=== PATIENT | male | born 1960 | race Caucasian/White ===

== ENCOUNTER 2021-04-19 15:00 | Observation (INO) ==
[2021-04-19 15:36] LABS: Basophils # (auto) 0.01 K/uL (0-0.2); Basophils % (auto) 0.2 %; Eosinophils # (auto) 0.05 K/uL (0-0.5); Eosinophils % (auto) 0.9 %; Hematocrit (blood only) 43.1 % (42-52); Hemoglobin 14.6 g/dL (14.0-18.0); Immature Granulocytes # (auto) 0.01 K/uL (0.00-0.02); Immature Granulocytes % (auto) 0.2 %; Lymphocytes # (auto) 1.67 K/uL (1.2-3.4); Mean Corpuscular Hemoglobin 31.4 pg (25-34); Mean Corpuscular Hgb Conc 33.9 g/dL (32-36); Mean Corpuscular Volume 92.7 fL (80-100); Mean Platelet Volume 10.4 fL (7.4-10.4); Monocytes # (auto) 0.45 K/uL (0.11-0.59); Monocytes % (auto) 7.8 %; Neutrophils # (auto) 3.56 K/uL (1.4-6.5); Neutrophils % (auto) 61.9 %; Platelet Count 121 K/uL (130-400); RDW Coefficient of Variation 14.3 % (11.5-14.5); RDW Standard Deviation 48.3 fL (36.4-46.3); Red Blood Count 4.65 M/uL (4.7-6.1); White Blood Count 5.75 K/uL (4.8-10.8)
[2021-04-19 15:48] LABS: Albumin Level 4.1 gm/dl (3.4-5.0); BUN Creatinine Ratio 19.3 (10-20); Calcium 9.8 mg/dl (8.5-10.1); Creatinine Clr Calc Pharmacy 119.3 ml/min; Est GFR (Non-African American) 94.9 ml/min; Potassium 3.9 mmol/L (3.5-5.1)
[2021-04-19 15:51] LABS: Albumin Globulin Ratio 1.2 (0.9-2); Bilirubin,Total 0.5 mg/dl (0.2-1); Globulin 3.4 gm/dl (2.5-4.0); Total Protein 7.5 gm/dl (6.4-8.2)
--- NOTE | 2021-04-19 16:47 | Emergency Department Note ---
Impression & Plan Incarcerated umbilical hernia, Abdominal pain ED Provider Note NAME: BASIL SALEEM AGE: 60 SEX: M : 1960 ARRIVES VIA: Walk-In INFORMANT: Patient ED PROVIDER(S): Kendell Brooks DO CHIEF COMPLAINT: abdominal pain HPI: Patient is a 60-year-old male who presents the ER for periumbilical abdominal pain. This started 2 days ago. He was diagnosed with Covid 3 weeks ago and his symptoms have nearly resolved. He notes he does have some normal bowel movements but he was recently taking a fair amount of antibiotics and believes this is secondary to that. Last bowel movement was within the past 24 hours. Denies any dysuria urgency or frequency. No chest pain or shortness of breath. He noticed pain around his umbilicus is worse with sitting or straining. It improves with standing up. Pain is currently 5 out of 10. ROS: See above HPI for pertinent positives & negatives. A total of 10 systems reviewed and were otherwise negative. PAST MEDICAL HISTORY:See Below PAST SURGICAL HISTORY:See Below FAMILY HISTORY:See Below SOCIAL HISTORY:See Below HOME MEDICATIONS:See Below ALLERGIES:See Below VITALS:See Below PHYSICAL EXAMINATION: GENERAL: Sitting up in bed, alert, well appearing, well nourished, no distress, non-toxic EYE EXAM: normal conjunctiva. PERRL and EOM's grossly intact. OROPHARYNX: no exudate, no erythema, lips, buccal mucosa, and tongue normal and mucous membranes are moist NECK: supple, no nuchal rigidity, no adenopathy, non-tender LUNGS: Clear to auscultation. Normal chest wall mechanics HEART: no murmurs, S1 normal and S2 normal ABDOMEN: abdomen soft, mild periumbilical tenderness, normo-active bowel sounds, no masses, no rebound or guarding. UPPER EXTREMITIES: upper extremities are grossly normal. LOWER EXTREMITIES: No pitting edema. NEURO EXAM: Normal sensorium, cranial nerves II-XII grossly intact, normal speech, no gross weakness of arms, no gross weakness of legs. MEDICAL DECISION MAKING: Patient is a 60-year-old male who presents the ER for periumbilical abdominal pain that has been getting worse for the past 2 days. IV was established blood work was obtained. Labs show no significant leukocytosis or anemia. BMP along with LFTs bilirubin and lipase is unremarkable. UA was clean. Covid was negative. CT abdomen pelvis shows an incarcerated periumbilical hernia. Patient was seen and evaluated by general surgery and taken to the OR. Triage Nursing notes reviewed. Limited review of prior medical records performed Vital Signs: reviewed and remarkable for HTN Differential diagnosis: Differential diagnoses includes but is not limited to gastritis, peptic ulcer disease, GERD, gallbladder disease, pancreatitis, small bowel obstruction, acute coronary syndrome, pericarditis, ischemic bowel, irritable bowel disease, irritable bowel syndrome, appendicitis, diverticulitis, malignancy, hernia, urinary tract infection, torsion, perforation, trauma, infectious. ER treatment provided: See below Diagnostics interpreted by me: ECG: none Cardiac Monitoring: An order was placed for continuous cardiac monitoring. The monitor shows a rate of 72 with sinus rhythm. Laboratory studies: As stated above and show below. Imaging studies: CT abdomen pelvis shows an incarcerated periumbilical hernia Consultation(s): Discussed with Dr. valdez and patient was taken to the OR Procedures: none Critical Care: None Past Med/Surg History Medical History (Updated 04/19/21 @ 23:29 by Kendell Brooks DO) Anxiety Asthma [place] esophagus Chronic sinus infection history COVID-03 april 2021 GERD (gastroesophageal reflux disease) Hypertension Kidney stones Osteoarthritis Reactive airway disease Surgical History (Updated 04/19/21 @ 22:59 by Era Melissa RN) History of arthroplasty of right shoulder History of cardiac cath Family History Other Heart disease Social History Smoking Status: Never smoker Second Hand Exposure: No; Do You Dip or Chew Tobacco: No; Tobacco Cessation Education Requested by Patient: No Hx Alcohol Use: No Hx Substance Use: No Preferred Language: Malawian Communication Ability: Effective Document Control Clerk Required: No Beliefs That Will Affect Care: None Current Living Situation: Spouse Other Information That Helps Us Care for You: No Feels Safe at Home: Yes Safety Concerns: Feels Safe At This Time Assistive Devices: Glasses Allergies Allergies Allergy/AdvReac Type Severity Reaction Status Date / Time No Known Allergies Allergy Unverified 04/19/21 20:00 Home Meds Home Medications Medication Instructions Recorded Confirmed aspirin 81 mg tablet,delayed 81 mg PO QAM 04/12/19 04/19/21 release cholecalciferol (vitamin D3) 125 5,000 unit PO QAM 04/12/19 04/19/21 mcg (5,000 unit) tablet (Vitamin D3) lisinopril 40 mg tablet 40 mg PO QAM 04/12/19 04/19/21 [id number] acid-vit 1 tab PO QAM 04/12/19 04/19/21 K-lycop 400 mcg-20 mcg-370 mcg tablet (Men's 50 Plus Multivitamin) omega 5-kqf-cjt-fish oil 1,000 mg 1 cap PO QAM 04/12/19 04/19/21 (120 mg-180 mg) capsule (Fish Oil) carvedilol 25 mg tablet 25 mg PO BID 04/19/21 04/19/21 famotidine 20 mg tablet 20 mg PO BID 04/19/21 04/19/21 hydralazine 25 mg tablet 50 mg PO BID 04/19/21 04/19/21 magnesium oxide 400 mg PO QAM 04/19/21 04/19/21 omeprazole 40 mg capsule,delayed 40 mg PO QAM 04/19/21 04/19/21 release tamsulosin 0.4 mg capsule 0.4 mg PO HS 04/19/21 04/19/21 Results & Data (ED) Vital Signs Vital Signs - 24 hr 04/19/21 15:11 04/19/21 17:01 Temperature 36.5 C Temperature Source Temporal Artery Scan Pulse Rate 78 Pulse Rate [Right Finger] 80 Pulse Rhythm Regular Pulse Strength Normal Respiratory Rate 20 15 Respiratory Effort / Characteristics Non-Labored Spontaneous Respiratory Depth Normal Respiratory Pattern Regular Blood Pressure 166/97 H Blood Pressure [Left Arm] 155/100 H Blood Pressure Mean 120 Blood Pressure Mean [Left Arm] 118 Blood Pressure Position Sitting Pulse Oximetry 98 98 Oxygen Delivery Method Room Air Sepsis Recent Fever Within 48 Hours No Sepsis New/Unexplained Change in Mental Status No Sepsis Action Taken by Nursing No Action Required Laboratory Data Result diagrams: 04/19/21 15:20 04/19/21 15:20 Lab Results 04/19/21 04/19/21 04/19/21 Range/Units 15:20 15:20 16:46 WBC 5.75 (4.8-10.8) K/uL RBC 4.65 L (4.7-6.1) M/uL Hgb 14.6 (14.0-18.0) g/dL Hct 43.1 (42-52) % MCV 92.7 (80-100) fL MCH 31.4 (25-34) pg MCHC 33.9 (32-36) g/dL RDW Std Deviation 48.3 H (36.4-46.3) fL RDW Coeff of Tyler 14.3 (11.5-14.5) % Plt Count 121 L (130-400) K/uL MPV 10.4 (7.4-10.4) fL Immature Gran % (Auto) 0.2 % Neut % (Auto) 61.9 % Lymph % (Auto) 29.0 % Saunders % (Auto) 7.8 % Eos % (Auto) 0.9 % Baso % (Auto) 0.2 % Neut # (Auto) 3.56 (1.4-6.5) K/uL Lymph # (Auto) 1.67 (1.2-3.4) K/uL Saunders # (Auto) 0.45 (0.11-0.59) K/uL Eos # (Auto) 0.05 (0-0.5) K/uL Baso # (Auto) 0.01 (0-0.2) K/uL Immature Gran # (Auto) 0.01 (0.00-0.02) K/uL Sodium 137 (136-145) mmol/L Potassium 3.9 (3.5-5.1) mmol/L Chloride 104 (98-107) mmol/L Carbon Dioxide 27 (21-32) mmol/L Anion Gap 6.0 (3-11) BUN 17 (7-18) mg/dl Creatinine 0.86 (0.6-1.4) mg/dl Est Cr Clr Drug Dosing 119.3 ml/min Est GFR ( Amer) 110.0 ml/min Est GFR (Non-Af Amer) 94.9 ml/min BUN/Creatinine Ratio 19.3 (10-20) Glucose 91 (70-99) mg/dl Calcium 9.8 (8.5-10.1) mg/dl Total Bilirubin 0.5 (0.2-1) mg/dl AST 16 (15-37) U/L ALT 34 (12-78) U/L Alkaline Phosphatase 34 L (45-117) U/L Total Protein 7.5 (6.4-8.2) gm/dl Albumin 4.1 (3.4-5.0) gm/dl Globulin 3.4 (2.5-4.0) gm/dl Albumin/Globulin Ratio 1.2 (0.9-2) Lipase 140 (73-393) U/L Urine Color Yellow Urine Appearance Clear (Clear) Urine pH 7.5 (4.5-7.5) Ur Specific [place] 1.015 (1.000-1.030) Urine Protein Negative (Negative) Urine Glucose (UA) Negative (Negative) Urine Ketones Negative (Negative) Urine Blood Negative (Negative) Urine Nitrite Negative (Negative) Urine Bilirubin Negative (Negative) Urine Urobilinogen Negative (Negative) Ur Leukocyte Esterase Negative (Negative) COVID-19 Eval Order SARS-CoV-2, RNA, NAAT (NEGATIVE) 04/19/21 04/19/21 Range/Units 18:52 18:52 WBC (4.8-10.8) K/uL RBC (4.7-6.1) M/uL Hgb (14.0-18.0) g/dL Hct (42-52) % MCV (80-100) fL MCH (25-34) pg MCHC (32-36) g/dL RDW Std Deviation (36.4-46.3) fL RDW Coeff of Tyler (11.5-14.5) % Plt Count (130-400) K/uL MPV (7.4-10.4) fL Immature Gran % (Auto) % Neut % (Auto) % Lymph % (Auto) % Saunders % (Auto) % Eos % (Auto) % Baso % (Auto) % Neut # (Auto) (1.4-6.5) K/uL Lymph # (Auto) (1.2-3.4) K/uL Saunders # (Auto) (0.11-0.59) K/uL Eos # (Auto) (0-0.5) K/uL Baso # (Auto) (0-0.2) K/uL Immature Gran # (Auto) (0.00-0.02) K/uL Sodium (136-145) mmol/L Potassium (3.5-5.1) mmol/L Chloride (98-107) mmol/L Carbon Dioxide (21-32) mmol/L Anion Gap (3-11) BUN (7-18) mg/dl Creatinine (0.6-1.4) mg/dl Est Cr Clr Drug Dosing ml/min Est GFR ( Amer) ml/min Est GFR (Non-Af Amer) ml/min BUN/Creatinine Ratio (10-20) Glucose (70-99) mg/dl Calcium (8.5-10.1) mg/dl Total Bilirubin (0.2-1) mg/dl AST (15-37) U/L ALT (12-78) U/L Alkaline Phosphatase (45-117) U/L Total Protein (6.4-8.2) gm/dl Albumin (3.4-5.0) gm/dl Globulin (2.5-4.0) gm/dl Albumin/Globulin Ratio (0.9-2) Lipase (73-393) U/L Urine Color Urine Appearance (Clear) Urine pH (4.5-7.5) Ur Specific [place] (1.000-1.030) Urine Protein (Negative) Urine Glucose (UA) (Negative) Urine Ketones (Negative) Urine Blood (Negative) Urine Nitrite (Negative) Urine Bilirubin (Negative) Urine Urobilinogen (Negative) Ur Leukocyte Esterase (Negative) [facility], [facility], NAAT NEGATIVE (NEGATIVE) Administered Medications Discontinued Medications Bacitracin (Bacitracin Oint 15 Gm Tube) Confirm Administered Dose 45 appln .ROUTE .STK-MED ONE Stop: 04/19/21 19:46 Last Admin: 04/19/21 21:11 Dose: 1 appln Documented by: [id number] Bupivacaine HCl (Bupivacaine 0.5 % 5 Mg/1 Ml Mpf 30ml Vial) Confirm Administered Dose 30 ml .ROUTE .STK-MED ONE Stop: 04/19/21 19:47 Last Admin: 04/19/21 21:12 Dose: 5 ml Documented by: [id number] Fentanyl Citrate (Fentanyl Citrate 100 Mcg/2 Ml Vial) 50 mcg IV Q5M PRN PRN Reason: PACU Use Only-Pain Stop: 04/20/21 04:10 Last Admin: 04/19/21 22:01 Dose: 50 mcg Documented by: [id number] Admin: 04/19/21 21:51 Dose: 50 mcg Documented by: [id number] Cefazolin Sodium (Ancef 3000mg) 72.5 mls @ 130 mls/hr IV PREOP ONE Stop: 04/19/21 20:29 Last Admin: 04/19/21 22:45 Dose: Not Given Documented by: [id number] Cefazolin Sodium (Ancef 2000mg) 2,000 mg in 15 mls @ 3.75 mls/min IV ONCE ONE Stop: 04/19/21 21:03 Last Admin: 04/19/21 20:47 Dose: 3.75 mls/min Documented by: [id number] Ioversol (Optiray 320 100ml) 90 ml IV ONCE ONE Stop: 04/19/21 17:22 Last Admin: 04/19/21 17:21 Dose: 90 ml Documented by: [id number] Lidocaine HCl (Lidocaine 1% Local 20 Ml Vial) Confirm Administered Dose 20 ml .ROUTE .STK-MED ONE Stop: 04/19/21 19:47 Last Admin: 04/19/21 21:12 Dose: 5 ml Documented by: [id number] Ondansetron HCl (Ondansetron Inj 2 Mg/Ml 2 Ml Vial) 4 mg IV ONCE PRN PRN Reason: PACU Use Only-Nausea/Vomiting Stop: 04/20/21 04:10 Last Admin: 04/19/21 21:50 Dose: 4 mg Documented by: [id number] Imaging Data Radiologist's Impression: Abdomen/Pelvis CT 04/19/21 16:[address] WITH IV CONTRAST CT DOSE: 1543.31 mGy.cm HISTORY: Acute generalized abdominal pain with periumbilical mass abd pain periumbilical w/ mass TECHNIQUE: Multiaxial CT images of the abdomen and pelvis were performed following the IV administration of 90 cc of Optiray, A dose lowering technique was utilized adhering to the principles of ALARA. COMPARISON STUDY: Chest radiograph 04/12/2019 FINDINGS: The imaged inferior cardiac chambers are unremarkable. Clear lung bases. No pneumatosis or pneumoperitoneum. The spleen measures the upper limits of normal in size. Unremarkable pancreas, gallbladder and adrenal glands. Unremarkable liver. Patent portal vein. Mild nonspecific bilateral perinephric stranding with numerous renal sinus cysts. Punctate nonobstructing calculus of t he inferior pole right kidney. No ureteral calculi or hydronephrosis. Urinary bladder wall thickening with partial distention. Small fat filled left inguinal hernia. Unremarkable prostate. Unremarkable aorta and IVC. No adenopathy. Colonic diverticulosis without acute diverticulitis. No bowel obstruction or bowel wall thickening. Normal appendix. No ascites or mesenteric inflammation. There is a small fat filled periumbilical hernia with diastases of 2 cm. Mild associated inflammatory stranding. No acute fracture. Degenerative changes of the spine, pelvis and hips. Vascular calcification of the left retroareolar tissues. IMPRESSION: 1. Small fat filled periumbilical hernia. Mild associated inflammatory stranding may reflect fat necrosis with associated incarceration. Correlate with clinical exam findings. 2. No bowel obstruction or bowel wall thickening. Normal appendix. 3. Colonic diverticulosis. 4. Punctate nonobstructing right renal calculus. 5. Additional findings as above. ACT 112: Negative or not required by law. The above report was generated using voice recognition software. It may contain grammatical, syntax or spelling errors. Electronically signed by: Ba Lopez M.D. 04/19/2021 5:42 PM Discharge Plan Visit Data Chief Complaint: Abdominal Pain Stated Complaint: HERNIA NEAR BELLY BUTTON,VERY PAINFUL ED Provider: Kendell Brooks Discharge Problem: Incarcerated umbilical hernia, Abdominal pain Patient Disposition: Still a Patient Discharge Instructions Interventions: ED Discharge Assessment Last Done: 04/19/21 20:00
[2021-04-19 16:54] LABS: Appearance Urine Clear (Clear); Bilirubin Urine Negative (Negative); Blood Urine Negative (Negative); Color Urine Yellow; Glucose Urine UA Negative (Negative); Ketones Urine Negative (Negative); Leukocyte Esterase Urine Negative (Negative); Nitrite Urine Negative (Negative); Protein Urine Negative (Negative); Specific Gravity Urine 1.015 (1.000-1.030); Urobilinogen Urine Negative (Negative); pH Urine 7.5 (4.5-7.5)
[2021-04-19] MEDS ORDERED: OPTIRAY 320 100ml IV ONE (17:21)
--- NOTE | 2021-04-19 17:43 | CT Scan Report ---
ABDOMEN AND PELVIS CT WITH IV CONTRAST CT DOSE: 1543.31 mGy.cm HISTORY: Acute generalized abdominal pain with periumbilical mass abd pain periumbilical w/ mass TECHNIQUE: Multiaxial CT images of the abdomen and pelvis were performed following the IV administrat ion of 90 cc of Optiray, A dose lowering technique was utilized adhering to the principles of ALARA. COMPARISON STUDY: Chest radiograph 04/12/2019 FINDINGS: The imaged inferior cardiac chambers are unremarkable. Clear lung bases. No pneumatosis or pneumoperitoneum. The spleen measures the upper limits of normal in size. Unremarkable pancreas, gall bladder and adrenal glands. Unremarkable liver. Patent portal vein. Mild nonspecific bilateral perine phric stranding with numerous renal sinus cysts. Punctate nonobstructing calculus of the inferior rashaad e right kidney. No ureteral calculi or hydronephrosis. Urinary bladder wall thickening with partial d istention. Small fat filled left inguinal hernia. Unremarkable prostate. Unremarkable aorta and IVC. No adenopathy. Colonic diverticulosis without acute diverticulitis. No bowel obstruction or bowel wall thickening. N ormal appendix. No ascites or mesenteric inflammation. There is a small fat filled periumbilical anahi ia with diastases of 2 cm. Mild associated inflammatory stranding. No acute fracture. Degenerative ch anges of the spine, pelvis and hips. Vascular calcification of the left retroareolar tissues. IMPRESSION: 1. Small fat filled periumbilical hernia. Mild associated inflammatory stranding may reflect fat necr osis with associated incarceration. Correlate with clinical exam findings. 2. No bowel obstruction or bowel wall thickening. Normal appendix. 3. Colonic diverticulosis. 4. Punctate nonobstructing right renal calculus. 5. Additional findings as above. ACT 112: Negative or not required by law. The above report was generated using voice recognition software. It may contain grammatical, syntax o r spelling errors. Electronically signed by: Ba Lopez M.D. 04/19/2021 5:42 PM
--- NOTE | 2021-04-19 19:44 | Surgery Consultation ---
Date of Consultation April 19, 2021 Assessment & Plan (1) Incarcerated umbilical hernia: pt is a 60 year-old male who presents to ER woy one day history periumbilical pain, IMP: incarcerated periumbilical hernia plan, I recommend to do open repair umbilical hernia, possible mesh, D/W kendall efits, risks and alternatives of the surgery, the risks - infection, bleeding, hernia recurrence, seroma, complications relate to mesh, [place], DVT, stroke, , pt understood, he and his agree with the surgery, he signed informed consent, I answered all questions, pre-op antibiotic. History of Present Illness Reason for Consultation: incarcerated umbilical hernia Requesting Physician: kendell Balbuena History of Present Illness *NOTICE TO RECEIVING [facility]ENC[facility] This information is strictly Confidential and protected under [place] law. [place] law prohibits you from making any further disclosure of this information unless further disclosure is expressly permitted by the written consent of the person to whom it pertains or is authorized by law. A general authorization for the release of medical or other information is not sufficient for this purpose. Hospital accepts no responsibility if the information is made available to any other person, INCLUDING THE PATIENT. ED Provider Note NAME: BASIL SALEEM AGE:60SEX: M :1960 ARRIVES VIA: Walk-In INFORMANT: Patient ED PROVIDER(S): Kendell Brooks DO CHIEF COMPLAINT: abdominal pain HPI: Patient is a 60-year-old male who presents the ER for periumbilical abdominal pain. This started 2 days ago. He was diagnosed with Covid 3 weeks ago and his symptoms have nearly resolved. He notes he does have some normal bowel movements but he was recently taking a fair amount of antibiotics and believes this is secondary to that. Last bowel movement was within the past 24 hours. Denies any dysuria urgency or frequency. No chest pain or shortness of breath. He noticed pain around his umbilicus is worse with sitting or straining. It improves with standing up. Pain is currently 5 out of 10. I ( Angela Mazariegos MD ) got a call for consult incarcerated umbilical hernia, I reviewed pt's H/P, labs, CT scan with pt, pt is still have meli-umbilical pain with bulging, no reducible, ROS: See above HPI for pertinent positives & negatives. A total of 10 systems reviewed and were otherwise negative. PAST MEDICAL HISTORY:See Below PAST SURGICAL HISTORY:See Below FAMILY HISTORY:See Below SOCIAL HISTORY:See Below HOME MEDICATIONS:See Below ALLERGIES:See Below VITALS:See Below PHYSICAL EXAMINATION: GENERAL: Sitting up in bed, alert, well appearing, well nourished, no distress, non-toxic EYE EXAM: normal conjunctiva. PERRL and EOM's grossly intact. OROPHARYNX: no exudate, no erythema, lips, buccal mucosa, and tongue normal and mucous membranes are moist NECK: supple, no nuchal rigidity, no adenopathy, non-tender LUNGS: Clear to auscultation. Normal chest wall mechanics HEART: no murmurs, S1 normal and S2 normal ABDOMEN: abdomen soft, mild periumbilical tenderness, normo-active bowel sounds, no masses, no rebound or guarding. UPPER EXTREMITIES: upper extremities are grossly normal. LOWER EXTREMITIES: No pitting edema. NEURO EXAM: Normal sensorium, cranial nerves II-XII grossly intact, normal speech, no gross weakness of arms, no gross weakness of legs. MEDICAL DECISION MAKING: [Provider summary] Triage Nursing notes reviewed. Limited review of prior medical records performed Vital Signs: reviewed and remarkable for HTN Differential diagnosis: Differential diagnoses includes but is not limited to gastritis, peptic ulcer disease, GERD, gallbladder disease, pancreatitis, small bowel obstruction, acute coronary syndrome, pericarditis, ischemic bowel, irritable bowel disease, irritable bowel syndrome, appendicitis, diverticulitis, malignancy, hernia, urinary tract infection, torsion, [/ectopic (if female)], perforation, trauma, infectious. ER treatment provided: See below Diagnostics interpreted by me: ECG: [none] Cardiac Monitoring: An order was placed for continuous cardiac monitoring. The monitor shows a rate of [] with [] rhythm. Laboratory studies: [As stated above and show below.] Imaging studies: [See below] Consultation(s): [none] Procedures: [none] [PDMP:reviewed and no issues] Critical Care: [None] Past Med/Surg History Medical History(Updated 04/28/19 @ 00:04 by Alvina Rai) Asthma Reactive airway disease Surgical History History of cardiac cath Family History Other Heart disease Social History Smoking Status: Never smoker Preferred Language: Romansh Feels Safe at Home: Yes Allergies Allergies Allergy/AdvReac Type Severity Reaction Status Date / Time No Known Allergies Allergy Unverified 04/12/19 23:54 Home Meds Home Medications Medication Instructions Recorded Confirmed amoxicillin 875 mg-potassium 1 tab PO BID 04/12/19 04/12/19 clavulanate 125 mg tablet (Augmentin) aspirin 81 mg tablet,delayed 81 mg PO DAILY 04/12/19 04/12/19 release carvedilol 12.5 mg tablet 12.5 mg PO BID 04/12/19 04/12/19 cholecalciferol (vitamin D3) 125 5,000 unit PO DAILY 04/12/19 9 mcg (5,000 unit) tablet (Vitamin D3) lisinopril 40 mg tablet 40 mg PO DAILY 04/12/19 04/12/19 pdksklrayqym-rfs-cmrpr acid-vit 1 tab PO DAILY 04/12/19 04/12/19 K-lycop 400 mcg-20 mcg-370 mcg tablet (Men's 50 Plus Multivitamin) omega 2-flq-mcp-fish oil 1,000 mg 1 cap PO DAILY 04/12/19 (120 mg-180 mg) capsule (Fish Oil) prednisone 10 mg tablet 0 mg PO DIRECTED 04/12/19 04/12/19 Results & Data (ED) Vital Signs Vital Signs - 24 hr 04/19/21 15:11 Temperature 36.5 C Temperature Source Temporal Artery Scan Pulse Rate 78 Pulse Rhythm Regular Pulse Strength Normal Respiratory Rate 20 Respiratory Effort / Characteristics Non-Labored Spontaneous Respiratory Depth Normal Respiratory Pattern Regular Blood Pressure 166/97 H Blood Pressure Mean 120 Blood Pressure Position Sitting Pulse Oximetry 98 Oxygen Delivery Method Room Air Sepsis Recent Fever Within 48 Hours No Sepsis New/Unexplained Change in Mental Status No Sepsis Action Taken by Nursing No Action Required Laboratory Data Result diagrams: 04/19/21 15:20 04/19/21 15:20 Lab Results 04/19/21 04/19/21 Range/Units 15:20 15:20 WBC 5.75 (4.8-10.8) K/uL RBC 4.65 L (4.7-6.1) M/uL Hgb 14.6 (14.0-18.0) g/dL Hct 43.1 (42-52) % MCV 92.7 (80-100) fL MCH 31.4 (25-34) pg MCHC 33.9 (32-36) g/dL RDW Std Deviation 48.3 H (36.4-46.3) fL RDW Coeff of [place] 14.3 (11.5-14.5) % Plt Count 121 L (130-400) K/uL MPV 10.4 (7.4-10.4) fL Immature Gran % (Auto) 0.2 % Neut % (Auto) 61.9 % Lymph % (Auto) 29.0 % [place] % (Auto) 7.8 % Eos % (Auto) 0.9 % Baso % (Auto) 0.2 % Neut # (Auto) 3.56 (1.4-6.5) K/uL Lymph # (Auto) 1.67 (1.2-3.4) K/uL [place] # (Auto)B 0.45 (0.11-0.59) K/uL Eos # (Auto) 0.05 (0-0.5) K/uL Baso # (Auto) 0.01 (0-0.2) K/uL D Immature Gran # (Auto) 0.01 (0.00-0.02) K/uL Sodium 137 (136-145) mmol/L Potassium 3.9 (3.5-5.1) mmol/L Chloride 104 (98-107) mmol/L Carbon Dioxide 27 (21-32) mmol/L Anion Gap 6.0 (3-11) BUN 17 (7-18) mg/dl Creatinine 0.86 (0.6-1.4) mg/dl Est Cr Clr Drug Dosing 119.3 ml/min Est GFR ( Amer) 110.0 ml/min Est GFR (Non-Af Amer) 94.9 ml/min BUN/Creatinine Ratio 19.3 (10-20) Glucose 91 (70-99) mg/dl Calcium 9.8 (8.5-10.1) mg/dl Total Bilirubin 0.5 (0.2-1) mg/dl AST 16 (15-37) U/L ALT 34 (12-78) U/L Alkaline Phosphatase 34 L (45-117) U/L Total Protein 7.5 (6.4-8.2) gm/dl Albumin 4.1 (3.4-5.0) gm/dl Globulin 3.4 (2.5-4.0) gm/dl Albumin/Globulin Ratio 1.2 (0.9-2) Lipase 140 (73-393) U/L Allergies Allergy/AdvReac Type Severity Reaction Status Date / Time No Known Allergies Allergy Unverified 04/12/19 23:54 Home Medications Medication Instructions Recorded Confirmed Type aspirin 81 mg tablet,delayed 81 mg PO DAILY 04/12/19 04/19/21 History release cholecalciferol (vitamin D3) 125 5,000 unit PO DAILY 04/12/19 04/12/19 History mcg (5,000 unit) tablet (Vitamin D3) lisinopril 40 mg tablet 40 mg PO DAILY 04/12/19 04/19/21 History frsozemlgkzr-ybr-jpjes acid-vit 1 tab PO DAILY 04/12/19 04/19/21 History K-lycop 400 mcg-20 mcg-370 mcg tablet (Men's 50 Plus Multivitamin) omega 9-oqu-dwp-fish oil 1,000 mg 1 cap PO DAILY 04/12/19 04/19/21 History (120 mg-180 mg) capsule (Fish Oil) carvedilol 25 mg tablet 25 mg PO BID 04/19/21 04/19/21 History hydralazine 25 mg tablet 25 mg PO QID 04/19/21 04/19/21 History omeprazole 40 mg capsule,delayed 40 mg PO DAILY 04/19/21 04/19/21 History release tamsulosin 0.4 mg capsule 0.4 mg PO DAILY 04/19/21 04/19/21 History Patient History Medical History (Updated 04/19/21 @ 19:52 by Angela Mccurdy MD) Asthma Reactive airway disease Surgical History History of cardiac cath Family History Other Heart disease Social History Smoking Status: Never smoker Preferred Language: Romansh Feels Safe at Home: Yes Review of Systems Constitutional: as per Subjective / HPI Eyes: as per Subjective / HPI Respiratory: as per Subjective / HPI asthma Cardiovascular: as per Subjective / HPI Gastrointestinal: as per Subjective / HPI Genitourinary: + as per Subjective / HPI Musculoskeletal: as per Subjective / HPI Neurologic: as per Subjective / HPI Psychiatric: as per Subjective / HPI Endocrine: as per Subjective / HPI Hematologic / Lymphatic: as per Subjective / HPI Physical Exam Constitutional: WD/WN, vitals as above obesity Eyes: PERRL, conjunctivae normal, anicteric sclerae Neck: trachea midline, no thyromegaly Respiratory: normal respiratory effort, lungs clear to auscultation Cardiovascular: RRR, no murmur, no edema Gastrointestinal (Abdomen): soft, tenderness at meli-umbilical area with bulging, not reducible, no distend, BS + Musculoskeletal: no cyanosis or clubbing, extremities motor strength 5/5 Neurologic: patellar DTR's 2+ bilat, sensation intact Psychiatric: A+Ox3, euthymic affect Results & Data ([facility]) Vital Signs (Past 12 Hours) Vital Signs Temp Pulse Pulse Resp BP BP Pulse Ox 04/19/21 17:01 80 15 155/100 H 98 04/19/21 15:11 36.5 C 78 20 166/97 H 98 Laboratory Results Abnormal lab results 04/19/21 04/19/21 Range/Units 15:20 15:20 RBC 4.65 L (4.7-6.1) M/uL RDW Std Deviation 48.3 H (36.4-46.3) fL Plt Count 121 L (130-400) K/uL Alkaline Phosphatase 34 L (45-117) U/L Diagnostic Findings ABDOMEN AND PELVIS CT WITH IV CONTRAST CT DOSE: 1543.31 mGy.cm HISTORY: Acute generalized abdominal pain with periumbilical mass abd pain periumbilical w/ mass TECHNIQUE: Multiaxial CT images of the abdomen and pelvis were performed following the IV administration of 90 cc of Optiray, A dose lowering technique was utilized adhering to the principles of ALARA. COMPARISON STUDY: Chest radiograph 04/12/2019 FINDINGS: The imaged inferior cardiac chambers are unremarkable. Clear lung bases. No pneumatosis or pneumoperitoneum. The spleen measures the upper limits of normal in size. Unremarkable pancreas, gallbladder and adrenal glands. Unremarkable liver. Patent portal vein. Mild nonspecific bilateral perinephric stranding with numerous renal sinus cysts. Punctate nonobstructing calculus of the inferior pole right kidney. No ureteral calculi or hydronephrosis. Urinary bladder wall thickening with partial distention. Small fat filled left inguinal hernia. Unremarkable prostate. Unremarkable aorta and IVC. No adenopathy. Colonic diverticulosis without acute diverticulitis. No bowel obstruction or bowel wall thickening. Normal appendix. No ascites or mesenteric inflammation. There is a small fat filled periumbilical hernia with diastases of 2 cm. Mild associated inflammatory stranding. No acute fracture. Degenerative changes of the spine, pelvis and hips. Vascular calcification of the left retroareolar tissues. IMPRESSION: 1. Small fat filled periumbilical hernia. Mild associated inflammatory stranding may reflect fat necrosis with associated incarceration. Correlate with clinical exam findings. 2. No bowel obstruction or bowel wall thickening. Normal appendix. 3. Colonic diverticulosis. 4. Punctate nonobstructing right renal calculus. 5. Additional findings as above.
[2021-04-19] MEDS ORDERED: BACITRACIN OINT 15 GM TUBE ONE (19:45)
[2021-04-19] MEDS ORDERED: LIDOCAINE 1% LOCAL 20 ML VIAL ONE (19:46)
[2021-04-19] MEDS ORDERED: BUPIVACAINE 0.5 % 5 MG/1 ML MPF 30ML VIAL ONE (19:46)
--- NOTE | 2021-04-19 19:56 | History & Physical Bridge Note ---
Date of Service April 19, 2021 History & Physical Bridge Note I have examined the patient, reviewed the History & Physical and in the interval since the performance of the History & Physical I have noted the following changes of clinical significance: no changes noted
[2021-04-19] MEDS ORDERED: ePHEDrine sulfate 50 MG/ML AMP IV PRN (20:10)
[2021-04-19] MEDS ORDERED: ATROPINE SULFATE 0.1 MG/ML 10ML SYR IV PRN (20:10)
[2021-04-19] MEDS ORDERED: ONDANSETRON INJ 2 MG/ML 2 ML VIAL IV PRN ×2 (20:10→21:18)
--- NOTE | 2021-04-19 20:10 | Anesthesiology Consultation ---
Date of Service April 19, 2021 Assessment & Plan Chart Review Chart Review: Acceptable Risk for Surgery and Patient NOT seen in Pre Admission Testing Consults Requested none ASA [id number] Proposed Anesthesia Anesthesia Type: General Risk / Benefits Reviewed With: PT / POA / Parent / Guardian, Accepts Plan and Informed Consent Obtained History Surgery Operation Date: 04/19/21 20:30 Proposed Procedures p Ventral Hernia Repair(Not Applicable) - Angela Mccurdy MD Height/Weight Height: 5 ft 10 in Weight: 118.4 kg Allergies Allergy/AdvReac Type Severity Reaction Status Date / Time No Known Allergies Allergy Unverified 04/19/21 20:00 Medications Home Medications Medication Instructions Recorded Confirmed Last Taken aspirin 81 mg tablet,delayed 81 mg PO QAM 04/12/19 04/19/21 04/19/21 release cholecalciferol (vitamin D3) 125 5,000 unit PO QAM 04/12/19 04/19/21 04/19/21 mcg (5,000 unit) tablet (Vitamin D3) lisinopril 40 mg tablet 40 mg PO QAM 04/12/19 04/19/21 04/19/21 lclwvjdcajgl-xuj-ypkbt acid-vit 1 tab PO QAM 04/12/19 04/19/21 04/19/21 K-lycop 400 mcg-20 mcg-370 mcg tablet (Men's 50 Plus Multivitamin) omega 7-qto-oyw-fish oil 1,000 mg 1 cap PO QAM 04/12/19 04/19/21 04/19/21 (120 mg-180 mg) capsule (Fish Oil) carvedilol 25 mg tablet 25 mg PO BID 04/19/21 04/19/21 04/19/21 famotidine 20 mg tablet 20 mg PO BID 04/19/21 04/19/21 04/19/21 hydralazine 25 mg tablet 50 mg PO BID 04/19/21 04/19/21 04/19/21 magnesium oxide 400 mg PO QAM 04/19/21 04/19/21 04/19/21 omeprazole 40 mg capsule,delayed 40 mg PO QAM 04/19/21 04/19/21 04/19/21 release tamsulosin 0.4 mg capsule 0.4 mg PO HS 04/19/21 04/19/21 04/18/21 Past Medical History Medical History (Updated 04/19/21 @ 19:52 by Angela Mccurdy MD) Asthma Reactive airway disease Exercise / Class Metabolic Activity II 4-5 Yardwork/Stairs/Walk up hill Past Family History Family History Other Heart disease Past Surgical History Surgical History History of cardiac cath Past Anesthesia History No Hx of Anesthesia Complications and No Family Hx of Anesthesia Complications History of PONV No Hx of PONV and No Hx of Motion Sickness Social History Smoking Status: Never smoker Physical Exam Vital Signs Last Vital Signs Temp 36.5 C 04/19/21 15:11 Pulse 80 04/19/21 17:01 Resp 15 04/19/21 17:01 BP 155/100 H 04/19/21 17:01 Pulse Ox 98 04/19/21 17:01 Constitutional + obese ENMT Mouth: no dentition abnormality Thyromental Distance: > or= 3.5 Finger Breadths Mallampati Class: II Neck normal visual inspection Respiratory normal respiratory effort Auscultation: lungs clear to auscultation bilaterally Cardiovascular Rate/Rhythm: regular rate and regular rhythm Psychiatric Orientation: alert Testing Laboratory Results 04/19/21 15:20 04/19/21 15:20 Urine Color Yellow 04/19/21 16:46 Urine Appearance Clear (Clear) 04/19/21 16:46 Urine pH 7.5 (4.5-7.5) 04/19/21 16:46 Ur Specific [place] 1.015 (1.000-1.030) 04/19/21 16:46 Urine Protein Negative (Negative) 04/19/21 16:46 Urine Glucose (UA) Negative (Negative) 04/19/21 16:46 Urine Ketones Negative (Negative) 04/19/21 16:46 Urine Nitrite Negative (Negative) 04/19/21 16:46 Ur Leukocyte Esterase Negative (Negative) 04/19/21 16:46
[2021-04-19] MEDS ORDERED: PROPOFOL IV EMULSION 10 MG/ML 20 ML VIAL IV ONE (20:29)
[2021-04-19] MEDS ORDERED: ROCURONIUM BROMIDE 10 MG/ML 5 ML VIAL IV ONE (20:29)
[2021-04-19] MEDS ORDERED: fentaNYL citrate 100 MCG/2 ML VIAL ONE (20:29)
[2021-04-19] MEDS ORDERED: LIDOCAINE 2% 2 ML VIAL/AMP(20MG/ML) INFIL ONE (20:29)
[2021-04-19] MEDS ORDERED: MIDAZOLAM HCL 1 MG/ML 2ML VIAL ONE (20:29)
[2021-04-19] MEDS ORDERED: SUCCINYLCHOLINE CHLORIDE 20 MG/ML 10 ML VIAL IV ONE (20:29)
[2021-04-19] MEDS ORDERED: ONDANSETRON INJ 2 MG/ML 2 ML VIAL ONE ×2 (20:29→21:05)
[2021-04-19] MEDS ORDERED: ceFAZolin 2000MG 2,000 MG/15 ML SYR IV ONE (21:00)
[2021-04-19] MEDS ORDERED: KETOROLAC 30 MG/ML VIAL ONE (21:05)
[2021-04-19] MEDS ORDERED: NEOSTIGMINE METHYLSULFATE 1 MG/ML 10ML VIAL ONE (21:05)
[2021-04-19] MEDS ORDERED: GLYCOPYRROLATE 0.2 MG/ML VIAL ONE (21:05)
--- NOTE | 2021-04-19 21:14 | Post Operative Brief Note ---
Immediate Post Op Note v1 Date of Surgery April 19, 2021 Pre & Post Diagnosis Operation Date: 04/19/21 20:30 Pre-Op Diagnosis: Incarcerated umbilical hernia Post-Op Diagnosis: Incarcerated umbilical hernia I identified the patient and participated in the time-out.: Yes Procedure Operation Date: 04/19/21 20:30 Actual Procedures p Incarcerated Umbilical Hernia Repair(Not Applicable) - Angela Mccurdy MD Surgeon Angela Mccurdy MD Frame Cleaner cardio tech Estimated Blood Loss 5 Findings Consistent with Post-Op Diagnosis incarcerated umbilical hernia, hernia size about 2x2cm, Fluids 700ml Anesthesia Type General Complications none Disposition Accompanied Patient To Recovery: Yes
[2021-04-19] MEDS ORDERED: LABETALOL HCL IV 5 MG/ML 20ML IV ONE (21:16)
--- NOTE | 2021-04-19 21:38 | Anesthesiology Progress Note ---
Date of Service April 19, 2021 Anesthesia Post Procedure Vital Signs Vital Signs: Temp Pulse Pulse Resp BP BP Pulse Ox 04/19/21 17:01 80 15 155/100 H 98 04/19/21 15:11 36.5 C 78 20 166/97 H 98 Pain Intensity Abdomen: Pain Intensity: 2 Transfer of Care Handoff Completed per policy Notes Mental Status: alert / awake / arousable Patient Amnestic to Procedure: Yes Nausea / Vomiting: adequately controlled Pain: adequately controlled Airway Patency, RR, SpO2: stable & adequate BP & HR: stable & adequate Hydration State: stable & adequate Anesthetic Complications: no major complications apparent
[2021-04-19] MEDS: fentaNYL citrate 100 MCG/2 ML VIAL IV PRN ×2 (21:51→22:01)
[2021-04-19] MEDS ORDERED: HYDROmorphone INJ 0.5 MG/0.5 ML SYR IV PRN (22:35)
[2021-04-19] MEDS: LACTATED RINGER'S 1,000 ML IV SCH (23:25)
--- NOTE | 2021-04-20 00:21 | Operative Report (OR) ---
DATE OF PROCEDURE: 04/19/2021 PREOPERATIVE DIAGNOSIS: Incarcerated umbilical hernia. POSTOPERATIVE DIAGNOSIS: Incarcerated umbilical hernia. PROCEDURE: Open repair of incarcerated umbilical hernia. SURGEON: Angela Mccurdy MD. ANESTHESIA: General. ESTIMATED BLOOD LOSS: About 5 mL. FINDINGS: Incarcerated umbilical hernia. COMPLICATIONS: None. INDICATIONS FOR THE PROCEDURE: This is a 60-year-old gentleman who presented to ED with a 1-day hist ory of periumbilical pain and patient had a CT scan diagnosis of incarcerated umbilical hernia and I recommended to do open repair of incarcerated umbilical hernia with possible mesh. I did talk to the patient about the benefit, risk, alternate procedure. I indicated the risks may include, but not li mited to, such as bleeding, infection, hernia recurrence, seroma, complication related to mesh, injur y to other organs. The patient understands. He signed informed consent and I answered all questions . DETAILS OF PROCEDURE: After we identified the patient and verified the procedure, we brought the pat ient to the OR, put the patient in the supine position on the OR table. The patient received SCD on bilateral legs to prevent DVT. Also, patient received 2 grams of Ancef IV for prophylactic antibioti c. The patient received general anesthesia without difficulty. The abdomen was prepped and draped i n routine sterile fashion. After timeout, I injected the local anesthesia by using 1% lidocaine mixe d with 0.5% Marcaine around the umbilical area. Then, I made a small incision just below the umbilicus, opened the subcutaneous layer, reached the fa scial layer and then I mobilized the umbilicus, opened the umbilical hernia sac and found the patient had an incarcerated umbilical hernia. The hernia sac contained fatty tissue, so we reduced this fat tissue back to the abdominal cavity. Then we found the patient had an umbilical hernia size about 2 x 2 cm. I decided to use #1 Ethibond to suture close the umbilical hernia interruptedly. Once we p laced the suture in the fascial layer and then we tied each suture one by one, the hernia closed nice ly, no tension, hemostasis was obtained. Then, I used 2-0 Vicryl to reattach the umbilicus back to t he fascial layer, then another 2-0 Vicryl to suture subcutaneous layer interruptedly and used another 4-0 Vicryl to close the skin in continuous running. Then we put the dressing on. The patient tolerated the procedure well. All instrument, needle and sponge counts were correct x2 a t the end of the case. The patient was transferred to recovery room in stable condition. After the procedure, I did talk to the patient and the patient's about the OR finding and the procedure we did, they understand. Job ID: [id number]
[2021-04-20] MEDS ORDERED: COUGH DROP (SUGAR FREE) LOZ 24 LOZ/1 BOX BUCCAL ONE (03:38)
[2021-04-20] MEDS: oxyCODONE/ACETAMINOPHEN 5mg/325mg TAB PO PRN ×2 (03:56→09:33)
[2021-04-20] MEDS ORDERED: ceFAZolin 1000MG 1,000 MG/7.5 ML SYR IV ONE (04:00)
[2021-04-20] MEDS ORDERED: FLUARIX QUADRIVALENT 0.5 ML SYR IM ONE (08:00)
[2021-04-20] MEDS ORDERED: OMEGA-3 (PURIFIED FISH OIL) 1 GM CAP PO SCH (09:00)
[2021-04-20] MEDS ORDERED: hydrALAZINE TAB 50 MG TAB PO SCH (09:00)
[2021-04-20] MEDS ORDERED: MULTIVITAMIN TAB PO SCH (09:00)
[2021-04-20] MEDS ORDERED: CHOLECALCIFEROL 1,000 UNITS 25 MCG TAB PO SCH (09:00)
[2021-04-20] MEDS ORDERED: ASPIRIN 81 MG ECTAB PO SCH (09:00)
[2021-04-20] MEDS ORDERED: carvediloL 25 MG TAB PO SCH (09:00)
[2021-04-20] MEDS ORDERED: PANTOprazole 40 MG TAB PO SCH (09:00)
[2021-04-20] MEDS ORDERED: MAGNESIUM OXIDE 400 MG TAB PO SCH (09:00)
[2021-04-20] MEDS ORDERED: FAMOTIDINE 20 MG TAB PO SCH (09:00)
[2021-04-20] MEDS ORDERED: lisinopril 40 MG TAB PO SCH (09:00)
--- NOTE | 2021-04-20 11:01 | Discharge Summary ---
Date of Service April 20, 2021 Admission HPI Per Admitting Provider Patient is a 60-year-old male who presents the ER for periumbilical abdominal pain. This started 2 days ago. He was diagnosed with Covid 3 weeks ago and his symptoms have nearly resolved. He notes he does have some normal bowel movements but he was recently taking a fair amount of antibiotics and believes this is secondary to that. Last bowel movement was within the past 24 hours. Denies any dysuria urgency or frequency. No chest pain or shortness of breath. He noticed pain around his umbilicus is worse with sitting or straining. It improves with standing up. Pain is currently 5 out of 10. I ( Angela Mccurdy< ) got a call for consult incarcerated umbilical hernia, I reviewed pt's H/P, labs, CT scan with pt, pt is still have meli-umbilical pain with bulging, no reducible, Principal Diagnosis Incarcerated umbilical hernia Discharge Exam Constitutional WD/WN, vitals as above + obese; no acute distress and not ill appearing Respiratory normal respiratory effort; no respiratory distress, no labored breathing and no retractions Gastrointestinal (Abdomen) Inspection/Auscultation: + abdominal surgical incision (covered with clean and dry dressing) Percussion/Palpation: + abdomen tender (at incision site) and abdomen soft; no guarding and abdomen not rigid Skin no rashes, warm and dry Psychiatric A+Ox3, euthymic affect Discharge Data Allergies Allergy/AdvReac Type Severity Reaction Status Date / Time No Known Allergies Allergy Unverified 04/19/21 20:00 Consultations 04/19/21 18:47 Consult General Surgery Stat Procedures Performed Operation Date: 04/19/21 20:30 Actual Procedures p Incarcerated Open Umbilical Hernia Repair(Not Applicable) - Angela Mccurdy MD Ordered Studies 04/19/21 16:42 CT abd pelvis IV con only Stat Hospital Course (1) Incarcerated umbilical hernia: Patient taken to operating room for open umbilical hernia repair. Patient had small hernia defect so mesh was not placed. Patient tolerated procedure and transferred to recovery then to medical/surgical floor for postop care. Diet advanced as tolerated , PO Percocet prn pain, activity as tolerated. POD # 1 afebrile, vitals stable, moderate postop pain but controlled, tolerating diet and urinating without difficulty. Patient was discharged on POD # 1 in stable condition. Total Time Total Time Spent Total Time Spent (In Minutes): 20 minutes Total Time Includes: Examination of the Patient, Discharge Planning and Medication Reconciliation Discharge Plan Discharge Items Patient Disposition: Home - Self-Care Reason For Visit: INCARCERATED UMBILICAL HERNIA Discharge Diagnosis: Incarcerated umbilical hernia Umbilical hernia repair without mesh Activity: Per Instructions section Non-emergency contact: Primary Care Provider and Surgeon Call non-emergency contact if: you have any medication questions, your pain is worsening, your pain is concerning for you, your temperature is above 101, your wound has increased redness, your wound has increased drainage and your wound pain has increased Follow-up/Referrals: Angela Mccurdy MD [Physician] - 05/01/21 12:45 pm Samuel Joseph PA-C [Primary Care Provider] - 04/23/21 10:30 am (You will be seeing Dr. Umanzor.) Diet: Regular Addtl Attending Provider Instructions: Post-Surgical ~Discharge Instructions Activity Recommendations: - lifting limitation: (25 pounds for 4 weeks), - exercise/sex/sports limit: (nonstrenuous for 2 weeks), - driving or machine use limit: (none for 1 week, until pain free, and no longer taking narcotic pain medication), - Shower/bathe limit: (october shower beginning Friday, no submerging incision underwater for 2 weeks) Diet: - Resume previous diet SPECIAL CARE INSTRUCTIONS: - May shower on Friday. Sponge bath and wash hair in meantime. on Friday, remove outer dressing and shower. Let water run over area and pat dry. - Leave steri strips on for one week and then remove. - Call the surgeon's office with any questions or concerns - - (ex. temperature higher than 101 degrees F, excessive bleeding or pain). MEDICATIONS: - Resume previous medications unless instructed otherwise by your surgeon. - May alternate extra strength Tylenol and Ibuprofen as needed for mild to moderate pain -650 mg Tylenol every 6 hours as needed - Ibuprofen 600 mg every 6 hours as needed , take with food - Percocet 1 every 6 hours, as needed for moderate to severe pain - Recommend daily stool softener (Colace) while taking narcotic pain medication to prevent constipation or straining. FOLLOW UP VISIT: - If not already scheduled, please call the office to schedule a two week follow-up appointment. Office number Pending Studies at Discharge: No Stand-Alone Forms: [facility] [employer], Opioid Pain Management, Smoking Cessation Medications and DC Order Prescriptions: New oxycodone-acetaminophen [Percocet] 5-325 mg tablet 1 tab PO Q6H PRN (Reason: pain) Qty: 12 RF: 0 Continued lisinopril 40 mg Tablet 40 mg PO QAM RF: 0 omega 8-rga-xej-fish oil [Fish Oil] 1,000 mg (120 mg-180 mg) Capsule 1 cap PO QAM RF: 0 Men's 50 Plus Multivitamin 400-20-370 mcg Tablet 1 tab PO QAM RF: 0 cholecalciferol (vitamin D3) [Vitamin D3] 5,000 unit Tablet 5,000 unit PO QAM RF: 0 aspirin 81 mg Tablet,Delayed Release (Dr/Ec) 81 mg PO QAM RF: 0 carvedilol 25 mg tablet 25 mg PO BID RF: 0 hydralazine 25 mg tablet 50 mg PO BID RF: 0 omeprazole 40 mg capsule,delayed release(DR/EC) 40 mg PO QAM RF: 0 tamsulosin 0.4 mg capsule 0.4 mg PO HS RF: 0 famotidine 20 mg tablet 20 mg PO BID RF: 0 magnesium oxide 400 mg magnesium Tablet 400 mg PO QAM RF: 0 Discharge Orders: Discharge Order (Routine); Ordered 04/20/21 Ordered By: Gloria Rico/Other Patient Handouts: After Hernia Surgery Admission Data Admit Date/Time: 04/19/21 21:18 Attending Provider: Angela Mccurdy Admit Provider: Angela Mccurdy Primary Care Provider: Samuel Joseph Other Providers: Angela Mccurdy Other Interventions: Discharge Summary Assessment (RN) Last Done: 04/20/21 12:01
[2021-04-20] MEDS: LACTATED RINGER'S 1,000 ML IV SCH (11:59)
[2021-04-20] MEDS ORDERED: TAMSULOSIN HCL 0.4 MG CAP PO SCH (21:00)
== END 2021-04-20 13:30 | disposition home or self-care (01) ==
LOC: ED 15:00 → ASU 20:00 → 3N 20:00